=== PATIENT | male | born 1940 | race Caucasian/White ===

== ENCOUNTER 2022-01-08 03:01 | Observation (INO) ==
[2022-01-08] MEDS ORDERED: Lidocaine PATCH 5% PATCH TRANSDERM ONE (05:41)
[2022-01-08] MEDS ORDERED: Al Hydrox/Mg Hydrox/Simet LIQ 30 ML UDC PO PRN (07:37)
[2022-01-08] MEDS ORDERED: Ondansetron 4 mg VIAL 2 MG/ML 2 ml VIAL IV PRN (07:37)
[2022-01-08] MEDS ORDERED: oxyCODONE/Acetamin 5/325 mg TAB PO PRN (07:42)
[2022-01-08 08:12] LABS: ABS Eosinophils 0.1 10^3/ul (0-0.6); ABS Lymphocytes 0.9 10^3/ul (1.0-4.8); ABS Monocytes 0.7 10^3/ul (0-0.8); ABS Neutrophils 6.7 10^3/ul (1.5-7.7); Eosinophil % 1.1 %; Hematocrit 34 % (42-52); Hemoglobin 11.6 g/dL (14.0-18.0); Lymphocyte % 11.3 %; Mean Corpuscular HGB Conc 35 g/dL (31-36); Mean Corpuscular Hemoglobin 35 pg (27-31); Mean Corpuscular Volume 100 fL (80-94); Mean Platelet Volume 10.9 fL (7.4-10.4); Platelet Count 155 10^3/uL (150-450); Red Blood Count 3.36 10^6 /uL (4.18-5.48); Red Cell Distribution Width 15 % (10-15); White Blood Count 8.4 10^3/uL (3.5-10.8)
[2022-01-08 08:27] LABS: INR 1.29 (0.86-1.15)
[2022-01-08 08:46] LABS: Albumin 3.8 g/dL (3.2-5.2); Albumin/Globulin Ratio 1.8 (1-3); Calcium 8.8 mg/dL (8.6-10.3); Globulin 2.1 g/dL (2-4); Potassium 4.5 mmol/L (3.5-5.0); Total Bilirubin 0.9 mg/dL (0.2-1.0); Total Protein 5.9 g/dL (6.4-8.9); eGFR CKD-EPI 88.1 (>60)
[2022-01-08] MEDS: Polyethylene Glycol 3350 17 GM PACKET PO SCH (11:35)
[2022-01-08 13:10] LABS: Hematocrit 31 % (42-52); Hemoglobin 10.6 g/dL (14.0-18.0)
[2022-01-08 16:59] LABS: Hematocrit 29 % (42-52)
[2022-01-09 00:46] LABS: Hematocrit 27 % (42-52); Hemoglobin 9.5 g/dL (14.0-18.0)
[2022-01-09 06:21] LABS: ABS Eosinophils 0.3 10^3/ul (0-0.6); ABS Lymphocytes 1.5 10^3/ul (1.0-4.8); ABS Monocytes 0.7 10^3/ul (0-0.8); ABS Neutrophils 3.4 10^3/ul (1.5-7.7); Eosinophil % 5.6 %; Hematocrit 27 % (42-52); Hemoglobin 9.6 g/dL (14.0-18.0); Lymphocyte % 24.6 %; Mean Corpuscular HGB Conc 35 g/dL (31-36); Mean Corpuscular Hemoglobin 35 pg (27-31); Mean Corpuscular Volume 99 fL (80-94); Nucleated Red Blood Cells % 0.1; Platelet Count 133 10^3/uL (150-450); Red Blood Count 2.75 10^6 /uL (4.18-5.48); Red Cell Distribution Width 14 % (10-15); White Blood Count 5.9 10^3/uL (3.5-10.8)
[2022-01-09] MEDS: Polyethylene Glycol 3350 17 GM PACKET PO SCH (08:13)
[2022-01-09] MEDS: Lidocaine PATCH 5% PATCH TRANSDERM SCH (08:18)
[2022-01-09 18:41] LABS: Hematocrit 27 % (42-52); Hemoglobin 9.4 g/dL (14.0-18.0)
[2022-01-10 06:18] LABS: Hematocrit 28 % (42-52); Hemoglobin 9.4 g/dL (14.0-18.0)
[2022-01-10] MEDS: Polyethylene Glycol 3350 17 GM PACKET PO SCH (10:27)
[2022-01-10 10:30] LABS: Calcium 9.5 mg/dL (8.6-10.3); Magnesium 2.2 mg/dL (1.9-2.7); eGFR CKD-EPI 75.7 (>60)
[2022-01-10] MEDS: Lidocaine PATCH 5% PATCH TRANSDERM SCH (10:33)
[2022-01-10 11:24] VITALS: BP 103/56
== END 2022-01-10 14:45 | disposition home or self-care (01) ==
LOC: EDHOLD 03:01 → ED 03:01 → SSU 11:32
PROVIDERS: ADMIT Pediatrics; ATTEND Pediatrics

== ENCOUNTER 2024-11-11 21:07 | Inpatient (IN) ==
[2024-11-11] MEDS: cefTRIAXone 1 gm/50 mL D5W 1 GM/50 ML BAG IV ONE (21:47)
[2024-11-11] MEDS: LACTATED RINGERS IV ONE (21:48)
[2024-11-11 22:06] LABS: PCO2 Arterial 33 mmHg (35-45); PO2 Arterial 75 mmHg (80-100)
[2024-11-11] MEDS: Azithromycin 500 mg/250 ml NS 500 MG/250 ML BAG IVPB ONE (22:10)
[2024-11-11] MEDS ORDERED: Sulfur Hexaflouride MICROSPHR 25 MG VIAL IV PRN (22:33)
[2024-11-11 22:35] LABS: ALT 20 U/L (7-52); Albumin 3.8 g/dL (3.5-5.7); Albumin/Globulin Ratio 1.5 (1-3); Alkaline Phosphatase 55 U/L (35-149); Anion Gap 11 mmol/L (2-16); Blood Urea Nitrogen 25 mg/dL (6-24); C Reactive Protein 60.64 mg/L (<8.01); CO2 Carbon Dioxide 21 mmol/L (22-32); Calcium 8.8 mg/dL (8.6-10.3); Chloride 99 mmol/L (101-111); Creatinine, Serum 1.02 mg/dL (0.67-1.17); Globulin 2.5 g/dL (2-4); Glucose 139 mg/dL (70-100); Sodium 131 mmol/L (135-145); Total Bilirubin 1.1 mg/dL (0.2-1.0); Total Protein 6.3 g/dL (6.4-8.9); eGFR CKD-EPI 73.4 (>60)
[2024-11-11 23:23] LABS: Magnesium 2.2 mg/dL (1.9-2.7)
[2024-11-11 23:26] LABS: Hematocrit 42.5 % (38-53); Hemoglobin 14.2 g/dL (13.2-16.3); Mean Corpuscular Hemoglobin 35.3 pg (27-33); Mean Corpuscular Hgb Conc 33.5 g/dL (31-36); Mean Corpuscular Volume 105.4 fL (80-97); Mean Platelet Volume 11.5 fL (7.5-11.2); Platelet Count 162 10^3/uL (150-450); Red Blood Count 4.03 10^6/uL (4.06-5.63); Red Cell Distribution Width 14.4 % (12-17); White Blood Count 14.6 10^3/uL (3.6-10.2)
[2024-11-11] MEDS: Furosemide 40 mg/4 ml IV VIAL IV ONE (23:35)
[2024-11-11] MEDS ORDERED: Furosemide 40 mg/4 ml IV VIAL ONE (23:35)
[2024-11-11 23:40] LABS: ABS Lymphocytes 1.1 10^3/uL (1.0-4.8); ABS Monocytes 1.1 10^3/uL (0.0-1.1); ABS Neutrophils 12.3 10^3/uL (1.5-7.6); ABS Nucleated RBC 0.01 10^3/ul; Anisocytosis 1+; Eosinophil % 0.2 %; Lymphocyte % 7.3 %; Macrocytosis 1+; Nucleated Red Blood Cells % 0.1 %/100WBC (0.0-0.8)
[2024-11-11] MEDS: Norepinephrine 4 MG/250mL D5W 4,000 MCG/250 ML BAG IV SCH (23:44)
[2024-11-12] MEDS ORDERED: Ketamine HCL 50 mg/ml 10 ml VIAL (500 MG) ONE (00:42)
[2024-11-12] MEDS ORDERED: Rocuronium 50 mg VIAL 10 mg/ml 5 ml VIAL (50 mg) ONE (00:42)
[2024-11-12] MEDS: Propofol 10 mg/ml 100 ML BTL 1,000 MG/100 ML BTL IV SCH (00:59)
[2024-11-12 01:56] LABS: Potassium Redraw 6.4 mmol/L (3.5-5.0)
[2024-11-12 02:19] LABS: Potassium, Whole Blood 7.9 mmol/L (3.4-4.5)
[2024-11-12] MEDS: Phenylephrine 40 mcg/mL 10mL (400mcg) SYRINGE ONE (02:48)
[2024-11-12] MEDS: Rocuronium 50 mg VIAL 10 mg/ml 5 ml VIAL (50 mg) ONE ×2 (02:48)
[2024-11-12] MEDS: Chlorhexidine MOUTHWASH 0.12% 15 ML UDC TOPICAL SCH (02:48)
[2024-11-12] MEDS: EPINEPHrine SYR 0.1MG/ML 10 ml SYRINGE IV ONE (02:48)
[2024-11-12] MEDS: Dexamethasone IV 4 MG/ML VIAL 1 ml VIAL IV SLOW PU SCH (02:56)
[2024-11-12 03:12] LABS: Resp Rate 16
[2024-11-12 03:13] LABS: PCO2 Arterial 69 mmHg (35-45); PO2 Arterial 79 mmHg (80-100)
[2024-11-12] MEDS: CALCIUM GLUCONATE 1GM/50ML NS 1 GM/50 ML BAG IV ONE (03:17)
[2024-11-12] MEDS: Dextrose 50% Syringe 50 ml 25 GM/50 ML SYRINGE IV PUSH ONE (03:17)
[2024-11-12] MEDS: Furosemide 40 mg/4 ml IV VIAL IV ONE (03:17)
[2024-11-12 03:28] LABS: Hematocrit 44.2 % (38-53); Hemoglobin 14.9 g/dL (13.2-16.3); Mean Corpuscular Hemoglobin 35.6 pg (27-33); Mean Corpuscular Hgb Conc 33.7 g/dL (31-36); Mean Corpuscular Volume 105.8 fL (80-97); Mean Platelet Volume 11.2 fL (7.5-11.2); Platelet Count 185 10^3/uL (150-450); Red Blood Count 4.18 10^6/uL (4.06-5.63); Red Cell Distribution Width 14.3 % (12-17); White Blood Count 16.9 10^3/uL (3.6-10.2)
[2024-11-12 03:44] LABS: ABS Lymphocytes 0.9 10^3/uL (1.0-4.8); ABS Monocytes 1.4 10^3/uL (0.0-1.1); ABS Neutrophils 14.6 10^3/uL (1.5-7.6); ABS Nucleated RBC 0.01 10^3/ul; Eosinophil % 0.1 %; Lymphocyte % 5.4 %
[2024-11-12] MEDS: Iodixanol 320 (CONTRAST) 100 ML SDV IV ONE (04:08)
[2024-11-12] MEDS: Sodium Polystyrene ORAL.SUSP 15 GM/60 ML BTL PO ONE (04:34)
[2024-11-12 04:51] VITALS: BP 104/70
[2024-11-12] MEDS ORDERED: Vancomycin per Pharmacy 1 EA NOTE FOLLOW UP SCH (05:00)
[2024-11-12 05:20] LABS: Resp Rate 24
[2024-11-12 05:21] LABS: PCO2 Arterial 47 mmHg (35-45); PO2 Arterial 89 mmHg (80-100)
[2024-11-12] MEDS: Cefepime 1 GM in Dextrose 1 GM/50 ML BAG IV SCH (05:44)
[2024-11-12 06:13] LABS: Albumin 3.5 g/dL (3.5-5.7); Albumin/Globulin Ratio 1.5 (1-3); Calcium 8.7 mg/dL (8.6-10.3); Creatinine, Serum 1.44 mg/dL (0.67-1.17); Globulin 2.3 g/dL (2-4); Magnesium 2.2 mg/dL (1.9-2.7); Potassium 4.6 mmol/L (3.5-5.0); Total Bilirubin 0.8 mg/dL (0.2-1.0); Total Protein 5.8 g/dL (6.4-8.9); eGFR CKD-EPI 48.5 (>60)
[2024-11-12] MEDS: Enoxaparin 80 MG/0.8 ML SYR SUBCUT SCH (07:08)
[2024-11-12] MEDS: Vancomycin 1000 MG in NS 0.9% 250 ML IVPB ONE (07:10)
[2024-11-12] MEDS: Norepinephrine *QUAD STRENGTH* 16 mg/250 mL NS PREMIX (ICU ONLY) IV SCH (07:10)
[2024-11-12] MEDS ORDERED: Famotidine IV 10 MG/ML 2 ml VIAL (20 mg) IV SLOW PU SCH (09:00)
[2024-11-12] MEDS: Pantoprazole VIAL 40 MG VIAL IV SCH (10:05)
[2024-11-12 10:50] LABS: PCO2 Arterial 34 mmHg (35-45); PO2 Arterial 173 mmHg (80-100); Resp Rate 28
[2024-11-12 11:21] LABS: High Sensitivity Troponin 1 Hr 353 pg/mL (<20)
[2024-11-12] MEDS: fentaNYL 100 mcg/2 ml 50 MCG/ML VIAL IV SLOW PU PRN (11:45)
[2024-11-12] MEDS: fentaNYL 100 mcg/2 ml 50 MCG/ML VIAL ONE (12:45)
[2024-11-12] MEDS: NS 0.9% 500 ml BAG 500 ML IV SCH ×2 (13:33→16:46)
[2024-11-12 18:01] LABS: PCO2 Arterial 36 mmHg (35-45); PO2 Arterial 99 mmHg (80-100)
[2024-11-12 18:16] LABS: Anion Gap 11 mmol/L (2-16); Blood Urea Nitrogen 39 mg/dL (6-24); CO2 Carbon Dioxide 16 mmol/L (22-32); Chloride 105 mmol/L (101-111); Creatinine, Serum 2.15 mg/dL (0.67-1.17); Glucose 145 mg/dL (70-100); Sodium 132 mmol/L (135-145)
[2024-11-12] MEDS: DOXYcycline 100 MG in NS 0.9% 250 ml 250 ML IVPB SCH (20:28)
[2024-11-12] MEDS ORDERED: cefTRIAXone 1 gm/50 mL D5W 1 GM/50 ML BAG IV SCH ×2 (21:00)
[2024-11-12] MEDS ORDERED: Azithromycin 500 mg/250 ml NS 500 MG/250 ML BAG IVPB SCH ×2 (22:00)
[2024-11-13] MEDS: Acetaminophen IV 1 GM/100ML 1,000 MG/100 ML BAG IV PRN (00:51)
[2024-11-13 03:31] LABS: Resp Rate 28
[2024-11-13 03:33] LABS: PCO2 Arterial 30 mmHg (35-45); PO2 Arterial 168 mmHg (80-100)
[2024-11-13 04:07] LABS: Hematocrit 42.3 % (38-53); Hemoglobin 14.2 g/dL (13.2-16.3); Mean Corpuscular Hemoglobin 34.8 pg (27-33); Mean Corpuscular Hgb Conc 33.5 g/dL (31-36); Mean Corpuscular Volume 103.9 fL (80-97); Mean Platelet Volume 11.6 fL (7.5-11.2); Platelet Count 181 10^3/uL (150-450); Red Blood Count 4.07 10^6/uL (4.06-5.63); Red Cell Distribution Width 14.6 % (12-17)
[2024-11-13 05:18] LABS: Potassium 5.6 mmol/L (3.5-5.0)
[2024-11-13 05:19] LABS: Calcium 8.3 mg/dL (8.6-10.3); Creatinine, Serum 2.83 mg/dL (0.67-1.17); Magnesium 2.2 mg/dL (1.9-2.7); eGFR CKD-EPI 21.6 (>60)
[2024-11-13 05:42] LABS: ABS Lymphocytes 1.4 10^3/uL (1.0-4.8); ABS Monocytes 1.9 10^3/uL (0.0-1.1); ABS Neutrophils 20.6 10^3/uL (1.5-7.6); ABS Nucleated RBC 0.01 10^3/ul
[2024-11-13] MEDS: CALCIUM GLUCONATE 1GM/50ML NS 1 GM/50 ML BAG IV ONE (06:07)
[2024-11-13] MEDS: Dextrose 50% Syringe 50 ml 25 GM/50 ML SYRINGE IV PUSH ONE (06:07)
[2024-11-13] MEDS: Sodium Polystyrene ORAL.SUSP 15 GM/60 ML BTL PO ONE ×2 (06:07→16:51)
[2024-11-13] MEDS: Vancomycin 1000 MG in NS 0.9% 250 ML IVPB SCH (07:33)
[2024-11-13] MEDS: fentaNYL INFUSION 50 mcg/mL VL 2,500 MCG/50 ML VIAL IV SCH (09:26)
[2024-11-13] MEDS: Senna TAB 8.6 mg TAB NG TUBE SCH (09:40)
[2024-11-13] MEDS: Polyethylene Glycol 3350 17 GM PACKET NG TUBE SCH (09:41)
[2024-11-13 14:24] LABS: Resp Rate 24
[2024-11-13 14:25] LABS: PCO2 Arterial 36 mmHg (35-45); PO2 Arterial 127 mmHg (80-100)
[2024-11-13 14:35] LABS: Creatinine, Serum 3.18 mg/dL (0.67-1.17); Potassium 5.8 mmol/L (3.5-5.0); eGFR CKD-EPI 18.7 (>60)
[2024-11-14] MEDS: Enoxaparin 80 MG/0.8 ML SYR SUBCUT SCH (04:40)
[2024-11-14 08:23] LABS: Hematocrit 39.7 % (38-53); Hemoglobin 13.5 g/dL (13.2-16.3); Mean Corpuscular Hemoglobin 35.6 pg (27-33); Mean Corpuscular Hgb Conc 34.1 g/dL (31-36); Mean Corpuscular Volume 104.2 fL (80-97); Mean Platelet Volume 11.6 fL (7.5-11.2); Platelet Count 169 10^3/uL (150-450); Red Blood Count 3.81 10^6/uL (4.06-5.63); Red Cell Distribution Width 14.3 % (12-17); White Blood Count 19.8 10^3/uL (3.6-10.2)
[2024-11-14 09:05] LABS: Calcium 8.1 mg/dL (8.6-10.3); Creatinine, Serum 4.04 mg/dL (0.67-1.17); Vancomycin Random 15.6 mcg/mL; eGFR CKD-EPI 14.1 (>60)
[2024-11-14 09:16] LABS: ABS Lymphocytes 0.7 10^3/uL (1.0-4.8); ABS Neutrophils 17.9 10^3/uL (1.5-7.6); ABS Nucleated RBC 0.01 10^3/ul; Lymphocyte % 3.7 %; Nucleated Red Blood Cells % 0.1 %/100WBC (0.0-0.8)
[2024-11-14] MEDS: Vancomycin Random Level NOTE FOLLOW UP ONE (10:00)
[2024-11-14] MEDS: Midazolam PREMIXBAG 1 MG/ML NS 100 ML IV SCH (12:18)
[2024-11-14] MEDS: Midazolam 5 mg/5 ml VIAL 1 mg/ml 5 ml VIAL (5 mg) IV SLOW PU PRN (14:46)
[2024-11-14] MEDS ORDERED: Ondansetron 4 mg VIAL 2 MG/ML 2 ml VIAL IV PRN (14:50)
[2024-11-14] MEDS ORDERED: Atropine 1% (ORAL/SL) 15 ML BTL SL PRN (14:50)
[2024-11-14] MEDS: Vancomycin 500 MG in NS 0.9% 250 ML IVPB ONE (17:04)
[2024-11-15] MEDS ORDERED: Vancomycin Random Level NOTE FOLLOW UP ONE (06:00)
[2024-11-15] MEDS ORDERED: Vancomycin Trough Check NOTE FOLLOW UP ONE (07:30)
[2025-09-12] MEDS ORDERED: Ketamine HCL 50 mg/ml 10 ml VIAL (500 MG) ONE (00:53)
[2025-09-12] MEDS ORDERED: Rocuronium 50 mg VIAL 10 mg/ml 5 ml VIAL (50 mg) ONE (00:53)
== END 2024-11-14 16:30 | disposition expired | DRG 871 ==
LOC: ED 21:07 → EDHOLD 22:30 → ICU 11-12 00:49
PROVIDERS: ADMIT Student in an Organized Health Care Education/Training Program; ATTEND Student in an Organized Health Care Education/Training Program